=== PATIENT | male | born 1995 | race Caucasian/White ===

== ENCOUNTER 2022-10-02 09:04 | Emergency (ER) | payer OTHER, SELFPAY ==
[2022-10-02] MEDS ORDERED: HYDROcodone/Acetaminophen 5/325 mg Tablet ONE (09:20)
[2022-10-02] MEDS ORDERED: Boostrix 0.5 ML (Tdap) VIAL (>/=7 yrs of age) ONE (10:18)
== END 2022-10-02 10:20 | disposition home or self-care (01) ==
LOC: BURERS 09:04
DX: S61.211A Laceration without foreign body of left index finger without damage to nail, initial encounter (principal); Z23 Encounter for immunization; W26.9XXA Contact with unspecified sharp object(s), initial encounter
CPT/HCPCS: 12001; 90471; 90715